=== PATIENT | male | born 1970 | race Caucasian/White ===

== ENCOUNTER 2023-12-26 22:10 | Emergency (ER) | payer OTHER ==
[~2023-12-26] VITALS: Ht 180.3 cm; Wt 90.6 kg
[2023-12-26 22:12] VITALS: BP 122/75; TEMP 97.2; O2SAT 95
[2023-12-26] MEDS: LIDOCAINE 2% MDV 20ML VIAL SC ONE (23:05)
[2023-12-26] MEDS: ceFAZolin SOD 2 GM in IV 1 EA IV ONE (23:05)
[2023-12-27] MEDS ORDERED: CEPH500T PO (00:05)
[2023-12-27] MEDS ORDERED: HYDR-3713 PO (00:05)
[2023-12-27] MEDS: BOOSTRIX VACCINE (TETANUS/DIPHTH/ACEL. PERTUSSIS) 0.5ML SYR IM ONE (00:30)
[2023-12-27] MEDS: OXYCODONE/APAP 5MG/325MG(HOME DOSE PACK) PO ONE (00:31)
== END 2023-12-27 00:39 | disposition home or self-care (01) ==
LOC: M ED 22:10
DX: S62.631B Displaced fracture of distal phalanx of left index finger, initial encounter for open fracture (principal); S61.301A Unspecified open wound of left index finger with damage to nail, initial encounter; W29.3XXA Contact with powered garden and outdoor hand tools and machinery, initial encounter; Y92.009 Unspecified place in unspecified non-institutional (private) residence as the place of occurrence of the external cause; Y93.9 Activity, unspecified; Y99.9 Unspecified external cause status; F17.200 Nicotine dependence, unspecified, uncomplicated
CPT/HCPCS: 11750; 73140; 90471; 90715; 96365; 96366; 99284; J0690